=== PATIENT | male | born 1965 | race Caucasian/White ===

== ENCOUNTER 2019-05-29 08:48 | Emergency (ER) | payer MEDICARE, MEDICAID, SELFPAY ==
[2019-05-29 09:00] VITALS: BP 118/68; PULSE 58; RESP 16; TEMP 36.5; O2SAT 98; BMI 21.7
--- NOTE | 2019-05-29 09:08 | W.ED.GENADLT ---
HPI - General Adult General: Chief complaint: Abdominal Pain Stated complaint: ABD PAIN Time Seen by Provider: 05/29/19 08:51 History of Present Illness: HPI narrative: Patient comes in with episodes of stomach cramps that started last night. He had to leave work because of this. His boss told him he need to get a note for being off work. 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 Patient also requesting a refill on his Viibryd medication. Just recently moved here does not have a primary care provider as of now. MD complaint: GE Onset (ago): hour(s) Radiation: non-radiation Severity: mild Severity scale (1-10): 1 Quality: other (Cramping) Pain Consistency: colicky Relieving factors: rest Exacerbating factors: eating Associated symptoms: Reports nausea; Deny chest pain, dyspnea, headache(s), rash or vomiting Treatments prior to arrival: none Review of Systems Const: Denies: fever, chills or body aches Eyes: Denies: change in vision or blurry vision ENMT: Denies: throat pain or nasal congestion Card: Denies: chest pain or shortness of breath on exertion Resp: Denies: shortness of breath, productive cough or non-productive cough GI: Reports: nausea and other (Cramping); Denies: abdominal pain or vomiting : Reports: urinary frequency; Denies: difficulty urinating Musc: Denies: extremity pain Skin/Breast: Denies: rash Neuro: Denies: headache Psych: Denies: anxiety or depression Slava/Lymph: Denies: easy bruising PFSH ED PFSH: Statuses (acute, chronic, etc) shown below reflect problem list status as previously entered and may not be historically accurate Social History Smoking and tobacco status: current every day smoker Physical Exam Const: COMMON NORMALS: no apparent distress, average body habitus and oriented x3 HENMT: COMMON NORMALS: normocephalic HEAD & SCALP: normal to inspection and normocephalic FACE & SINUS: normal facial exam Eye: COMMON NORMALS: conjunctivae normal GENERAL EYE: normal appearance of both eyes CONJUNCTIVA: Yes conjunctivae normal Neck/C-Spine: COMMON NORMALS: no JVD Chest: COMMONS NORMALS: inspection of chest normal Resp: COMMON NORMALS: normal respiratory effort and clear to auscultation bilaterally AUSCULTATION: clear to auscultation bilaterally Cardio: COMMON NORMALS: no JVD, regular rate and regular rhythm RATE: regular rate RHYTHM: regular rhythm GI: COMMON NORMALS: normal to inspection, nondistended, normoactive bowel sounds and soft to palpation INSPECTION: Yes normal to inspection AUSCULTATION: Yes hyperactive bowel sounds PALPATION: Yes soft and Yes tender Details: other (Generalized, patient was reacting to that before even touched him no consistency in listening response with palpation from patient) Extremity: COMMON NORMALS: normal to inspection and full ROM Neuro: COMMON NORMALS: oriented x3 Course Vital Signs: Vital signs: Vital Signs Temperature 97.7 F 05/29/19 09:00 Pulse Rate 63 05/29/19 09:15 Respiratory Rate 16 05/29/19 09:15 Blood Pressure 118/68 05/29/19 09:00 Pulse Oximetry 95 05/29/19 09:15 Discharge Plan Discharge Patient Disposition: Home, Self-Care Clinical Impression: Gastroenteritis Condition: Stable Prescriptions: New Zofran 4 mg tablet 4 mg PO Q8H PRN (Reason: nausea and vomiting) 2 Days Qty: 7 RF: 0 Discharge Orders: Discharge Order (Routine); Ordered 05/29/19 Ordered By: Vinicius Jackson Referrals: Audra Celeste, [facility] MA[facility]GER[facility] [Family Provider] - Discharge Diet: Advance as tolerated Discharge Activity: Increase activity as tolerated Patient Instructions: Gastroenteritis (ED) Activity Restrictions/Additional Instructions: Follow-up with medical provider as directed. Take medications as prescribed. Return to the ER or your medical provider if condition worsens. Please read and understand discharge instructions. If any questions ask please. No work today or tomorrow. Advance fluids as tolerated. Follow-up with behavioral health care to assist appointment for refill of his prescription. Stand Alone Forms: Work/School Release Coding Level of Care Code ED [place] for Louise De Leon
[2019-05-29 09:15] VITALS: PULSE 63; RESP 16; O2SAT 95
[2019-05-29 09:40] VITALS: BP 120/76; PULSE 56; RESP 17; O2SAT 95
== END 2019-05-29 09:41 | disposition home or self-care (01) ==
PROVIDERS: Emergency Provider Nurse Practitioner Family; Family Provider Nurse Practitioner
DX: K52.9 Noninfective gastroenteritis and colitis, unspecified (principal); F17.200 Nicotine dependence, unspecified, uncomplicated
CPT/HCPCS: 99281; 99282